=== PATIENT | male | born 1985 | race African-American/Black ===

== ENCOUNTER 2017-12-14 11:14 | Emergency (ER) | payer SELFPAY ==
[~2017-12-14] VITALS: Ht 165.1 cm; Wt 66.0 kg
[2017-12-14 13:35] VITALS: BP 122/66
== END 2017-12-14 14:08 | disposition home or self-care (01) ==
LOC: ER 14:08
DX: R19.7 Diarrhea, unspecified (principal); R11.0 Nausea; R68.83 Chills (without fever)
CPT/HCPCS: 99281